=== PATIENT | female | born 2000 | race Caucasian/White ===

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

== ENCOUNTER 2021-04-09 13:26 | Emergency (ER) | payer SELFPAY ==
[~2021-04-09] VITALS: Ht 170.2 cm; Wt 54.5 kg
[~2021-04-09 13:26] MED LIST changes: +NYSTATIN OR100 MU/ML PO; +VALTREX 50500 MG/TAB PO
[2021-04-09 13:41] VITALS: TEMP 99.4
[2021-04-09 14:18] LABS: STREP SCREEN NEGATIVE
[2021-04-09 16:40] VITALS: BP 110/68; PULSE 80
== END 2021-04-09 16:42 | disposition home or self-care (01) ==
LOC: COL.ER 13:26
PROVIDERS: Nurse Practitioner
DX: J02.9 Acute pharyngitis, unspecified (principal); Z20.822 Contact with and (suspected) exposure to COVID-19
CPT/HCPCS: J1100

== ENCOUNTER 2021-08-12 19:39 | Emergency (ER) | payer SELFPAY ==
[~2021-08-12] VITALS: Ht 170.2 cm; Wt 49.5 kg
[2021-08-12] MEDS ORDERED: CLEOCIN HCL300 MG PO (20:49)
[2021-08-12 21:27] LABS: BASO % 0.3 % (0.0-2.0); EOS # 0.1 K/mm3 (0.0-0.7); EOS % 0.8 % (0-4.0); GRAN # 11.6 K/mm3 (1.4-6.5); GRAN % 79.7 % (42.2-75.2); HEMATOCRIT 42.9 % (37.0-47.0); LYMPH # 1.8 K/mm3 (1.2-3.4); LYMPH % 12.1 % (20.0-51.0); MEAN CELL VOLUME 86 fl (80.0-100.0); MEAN CORPUSCULAR HEMOGLOBIN 30 pg (27.0-31.0); MEAN CORPUSCULAR HGB CONC 35 g/dl (33.0-37.0); MEAN PLATELET VOLUME 9.3 fl (7.4-10.4); MONO % 6.8 % (1.7-9.3); PLATELET COUNT 287 K/mm3 (130-400); RED BLOOD COUNT 4.99 M/mm3 (4.10-5.30); REDCELL DISTRIBUTION WIDTH-CV 12.1 % (11.5-14.5)
[2021-08-12 21:30] LABS: ALBUMIN 3.9 gm/dL (3.5-5.0); BILIRUBIN,TOTAL 0.5 mg/dL (0.2-1.2); CALCIUM 9.8 mg/dL (8.4-10.2); CREATININE, serum 0.76 mg/dL (0.57-1.11); POTASSIUM 3.7 mmol/L (3.5-4.5); TOTAL PROTEIN 8.1 gm/dL (6.2-8.1)
[2021-08-12 22:45] VITALS: BP 106/73; PULSE 65; TEMP 97.9
== END 2021-08-12 22:45 | disposition home or self-care (01) ==
LOC: COL.ER 19:39
PROVIDERS: Physician Assistant
DX: J36 Peritonsillar abscess (principal); Z20.822 Contact with and (suspected) exposure to COVID-19
CPT/HCPCS: J1100; J7030

== ENCOUNTER → 2021-10-12 | Emergency (ER) | payer SELFPAY ==
[~2021-10-12] VITALS: Ht 170.2 cm; Wt 52.3 kg
[~2021-10-12] MED LIST changes: +CLEOCIN HCL300 MG PO
[2021-10-12 18:48] VITALS: TEMP 99.6
[2021-10-12 21:44] VITALS: BP 102/59; PULSE 76
== END ==
LOC: COL.ER 18:15
DX: U07.1 COVID-19 (principal)

== ENCOUNTER 2023-09-29 14:34 | Emergency (ER) | payer SELFPAY ==
[~2023-09-29] VITALS: Ht 170.2 cm; Wt 55.9 kg
[~2023-09-29 14:34] MED LIST changes: +DESOWEN0.051 TP; +MEDROL 4MG DOSPA4 MG PO; +NORCO 325 MG-51 TAB PO
[2023-09-29 14:43] VITALS: TEMP 98.4
[2023-09-29 14:56] LABS: COLLECTION METHOD CLEAN CATCH
[2023-09-29 15:29] LABS: PH 5.5 (5.0-8.5); URINE APPEARANCE Clear (CLEAR/HAZY); URINE BLOOD 1+ (NEGATIVE); URINE COLOR Yellow (YELLOW); URINE GLUCOSE Negative (NEGATIVE); URINE KETONE Negative (NEGATIVE); URINE NITRATE Negative (NEGATIVE); URINE PROTEIN(semi-quant) 2+ (NEGATIVE); URINE UROBILINOGEN 0.2 E.U/dL (0.2-1.0)
[2023-09-29 15:30] LABS: MUCOUS Present (NOT PRESENT); SQUAMOUS EPITHELIAL 0-2 /hpf (0-10)
[2023-09-29] MEDS ORDERED: CEPHALEXIN500 M1 PO (15:37)
[2023-09-29 16:02] VITALS: BP 100/70; PULSE 85
[2023-10-01] MEDS ORDERED: BACTRIM DS 8001 TAB PO (11:13)
== END 2023-09-29 16:03 | disposition home or self-care (01) ==
LOC: COL.ER 14:34
PROVIDERS: Physician Assistant
DX: N39.0 Urinary tract infection, site not specified (principal)

== ENCOUNTER 2024-01-20 15:39 | Emergency (ER) | payer SELFPAY ==
[~2024-01-20] VITALS: Ht 170.2 cm; Wt 59.1 kg
[~2024-01-20 15:39] MED LIST changes: +BACTRIM DS 8001 TAB PO; +CEPHALEXIN500 M1 PO; +ZOFRAN ODT4 MG PO
[2024-01-20 15:43] VITALS: BP 118/78; TEMP 98.2
[2024-01-20] MEDS ORDERED: DESOWEN0.051 TP (16:45)
[2024-01-20] MEDS ORDERED: dexAMETHasone 10 MG/ML VIAL IM ONE (16:45)
[2024-01-20 17:04] VITALS: PULSE 88
== END 2024-01-20 17:03 | disposition home or self-care (01) ==
LOC: COL.ER 15:39
DX: L20.9 Atopic dermatitis, unspecified (principal)
CPT/HCPCS: J1100